=== PATIENT | female | born 1975 | race Caucasian/White ===

== ENCOUNTER 2016-11-20 12:26 | Emergency (ER) | payer OTHER ==
[~2016-11-20] VITALS: Ht 172.7 cm; Wt 66.5 kg
[2016-11-20 12:27] VITALS: BP 120/68; PULSE 86; RESP 16; TEMP 98.6; O2SAT 99
--- NOTE | 2016-11-20 12:34 | PD ---
Physical Exam Date Seen by Provider: Nov 20, 2016 Time Seen by Provider: 12:33 Narrative 41 yo female here for infected lower tooth for about 1 week. She is also but no issues with , here for the tooth. LMP in September 23. Pain is 4/10. Denies any other complaints. Vitals sign stable. Patient awaiting bed placement Data Data Last Documented VS Vital Signs Date Time Temp Pulse Resp B/P Pulse Ox O2 Delivery O2 Flow Rate FiO2 11/20/16 12:27 98.6 86 16 120/68 99 Room Air [facility] Medical Record Reviewed: Yes Supervised Visit with MARYLIN: No Jaydon Hua Nov 20, 2016 12:34
[2016-11-20] MEDS ORDERED: AMOX500C PO (13:48)
[2016-11-20] MEDS ORDERED: PERI0.126 SWISH-SPIT (13:48)
--- NOTE | 2016-11-20 13:49 | PD ---
HPI Chief Complaint: Oral / Dental Pain or Problem Time Seen by Provider: 13:45 Travel History International Travel<30 days: No Contact w/Intl Traveler<30days: No Traveled to known affect area: No History of Present Illness HPI 41-year-old female presents to the emergency Department with complaint of right lower dental pain 1 week. She is 8 weeks . Denies dental trauma. Says she has poor teeth. Denies facial erythema, edema. Denies fever, vomiting. No other medical complaints. No other modifying factors or associated signs and symptoms. PFSH Past Medical History ?: LMP: 09/23/16 Social History Tobacco Use: No Allergies-Medications Reported Meds & Prescriptions Reported Meds & Active Scripts Active Peridex Liq (Chlorhexidine Gluconate (Mouth) Liq) 0.12% Soln 15 Ml SWISH-SPIT BID 10 Days Amoxicillin 500 Mg Cap 500 Mg PO BID 10 Days Review of Systems Except as stated in HPI: all other systems reviewed are Neg Physical Exam Narrative GENERAL: Well-nourished, well-developed female patient, in no acute distress; afebrile, nontoxic-appearing SKIN: Warm and dry. HEAD: Atraumatic. Normocephalic. No facial edema, erythema, tenderness on palpation. No lymphadenopathy. EYES: Pupils equal and round. No scleral icterus. No injection or drainage. ENT: Mucosa pink and moist. Airway patent. MOUTH: Mucous membranes moist, no lesions, tongue and gums appear normal. Poor dentition throughout. Right lower tooth #30 with large dental cavity and decay ; existing tooth with tenderness on palpation; surrounding gingiva is edematous and without erythema, drainage; no obvious abscess noted. NECK: Trachea midline. No lymphadenopathy. CARDIOVASCULAR: Regular rate. RESPIRATORY: No accessory muscle use. GASTROINTESTINAL: Flat. MUSCULOSKELETAL: No obvious deformities. No clubbing. No cyanosis. No edema. NEUROLOGICAL: Awake and alert. Oriented 3. No obvious cranial nerve deficits. Motor grossly within normal limits. Normal speech. PSYCHIATRIC: Appropriate mood and affect; insight and judgment normal. Data Data Last Documented VS Vital Signs Date Time Temp Pulse Resp B/P Pulse Ox O2 Delivery O2 Flow Rate FiO2 11/20/16 12:27 98.6 86 16 120/68 99 Room Air MDM Medical Decision Making Medical Screen Exam Complete: Yes Emergency Medical Condition: Yes Medical Record Reviewed: Yes Differential Diagnosis Dentalgia, infected dental caries, dental abscess Narrative Course 41-year-old female with right lower tooth #30 dental pain. Poor dentition throughout. No facial erythema or edema. Patient is afebrile and nontoxic appearing. Denies fever, vomiting. Patient is a weeks . Emergency room recommendation dental sheet provided. Amoxicillin and Peridex mouth rinse prescribed for home. Instructed patient to follow up with dentist. Patient verbalizes understanding and agreement with treatment plan. Patient is medically cleared and stable for discharge. Discussed reasons to return to the emergency department. Instructed patient to follow up with primary care provider. Patient agrees with treatment plan. The patients vital signs are stable and the patient is stable for outpatient follow-up and treatment. Patient discharged home, stable and in no acute distress. Diagnosis Primary Impression: Dentalgia Referrals: Dentist Primary Care Physician Patient Instructions: Dental Abscess (ED), Dental Caries (ED), General Instructions, Toothache (ED) Departure Forms: Tests/Procedures, Work Release Enter return to work date: Nov 21, 2016 Additional Instructions: Complete full course of antibiotics Tylenol as directed and as needed to reduce pain and inflammation Use Peridex as directed for oral hygiene Warm compresses to the affected area Follow-up with dentist Follow-up with primary care provider Return to emergency department immediately with worsening of symptoms Med/Other Pt SpecificInfo: Prescription(s) given Scripts Chlorhexidine Gluconate (Mouth) Liq (Peridex Liq)0.12% Soln15 Ml SWISH-SPIT BID 10 Days Ref 0 Prov:Elise Haro 11/20/16 Amoxicillin 500 Mg Als305 Mg PO BID 10 Days Ref 0 Prov:Elise Haro 11/20/16 Disposition: 01 DISCHARGE HOME Condition: Stable Elsie Haro Nov 20, 2016 13:49
== END 2016-11-20 19:06 | disposition home or self-care (01) ==
LOC: NEPK 12:26
DX: K08.89 Other specified disorders of teeth and supporting structures (principal); Z33.1 Pregnant state, incidental
CPT/HCPCS: 99282

== ENCOUNTER 2017-02-04 13:25 | Emergency (ER) | payer MEDICAID, OTHER ==
[~2017-02-04 13:25] MED LIST: AMOX500C PO; PERI0.126 SWISH-SPIT
[2017-02-04 13:30] VITALS: BP 110/58; PULSE 71; RESP 18; TEMP 98.8; O2SAT 98
--- NOTE | 2017-02-04 13:57 | PD ---
Physical Exam Time Seen by Provider: 13:55 Narrative 41 y/o female here with left sided dental pain for 3-4 days. Vital signs reviewed. Seen at triage desk. Awaiting bed placement. Data Data Last Documented VS Vital Signs Date Time Temp Pulse Resp B/P Pulse Ox O2 Delivery O2 Flow Rate FiO2 02/04/17 13:30 98.8 71 18 110/58 98 Room Air MDM Medical Record Reviewed: Yes Supervised Visit with MARYLIN: Eric Reinoso Feb 04, 2017 13:57
--- NOTE | 2017-02-04 15:48 | PD ---
HPI Chief Complaint: Oral / Dental Pain or Problem Time Seen by Provider: 15:48 Travel History International Travel<30 days: No Contact w/Intl Traveler<30days: No Traveled to known affect area: No History of Present Illness HPI 41-year-old female who states she is 19 weeks presents versus permanent for evaluation of dental pain. Patient states that she has had bad teeth for a long time and she is unable to get into a dentist. Reports pain mostly on the left mandibular side. States she has been taking ibuprofen, despite knowing that she should not be . Patient denies a fever chills. Negative trauma. No difficulty chewing. No other symptoms to report. PFSH Past Medical History ?: Social History Tobacco Use: No Allergies-Medications (Allergen,Severity, Reaction): Coded Allergies: No Known Allergies (Unverified , 02/04/17) Reported Meds & Prescriptions Reported Meds & Active Scripts Active Peridex Liq (Chlorhexidine Gluconate (Mouth) Liq) 0.12% Soln 15 Ml SWISH-SPIT BID 14 Days Amoxicillin 500 Mg Tab 500 Mg PO BID 10 Days Peridex Liq (Chlorhexidine Gluconate (Mouth) Liq) 0.12% Soln 15 Ml SWISH-SPIT BID 10 Days Amoxicillin 500 Mg Cap 500 Mg PO BID 10 Days Review of Systems Except as stated in HPI: all other systems reviewed are Neg Physical Exam Narrative GENERAL: Well-nourished female patient distress SKIN: Focused skin assessment warm/dry. HEAD: Atraumatic. Normocephalic. EYES: Pupils equal and round. No scleral icterus. No injection or drainage. ENT: No nasal bleeding or discharge. Mucous membranes pink and moist. DENTAL: Poor dentition. Teeth along the mandible are decayed mostly to the gingiva. There is gingival erythema and edema. No appreciable abscess. No malocclusion. NECK: Trachea midline. No JVD. CARDIOVASCULAR: Regular rate and rhythm. No murmur appreciated. RESPIRATORY: No accessory muscle use. Clear to auscultation. Breath sounds equal bilaterally. Data Data Last Documented VS Vital Signs Date Time Temp Pulse Resp B/P Pulse Ox O2 Delivery O2 Flow Rate FiO2 02/04/17 16:03 02/04/17 13:30 98.8 71 18 98 Room Air MDM Medical Decision Making Medical Screen Exam Complete: Yes Emergency Medical Condition: Yes Medical Record Reviewed: Yes Differential Diagnosis Dental caries versus dental abscess versus gingivitis versus periodontal disease Narrative Course 21-year-old female presents for his primary for evaluation today. Patient does have generalized poor dentition. She has associated gingival erythema and edema. No appreciable abscess. I advised the patient not to take ibuprofen. Tylenol is safe for . She was started on oral antibiotics and provided Peridex oral rinse. She is encouraged to seek dental evaluation return immediately with any acute worsening symptoms. Diagnosis Primary Impression: Dentalgia Additional Impression: Gingivitis Referrals: Dentist Primary Care Physician Patient Instructions: Dental Caries (DC), General Instructions, Gingivitis (ED) Additional Instructions: Follow-up with a primary care provider Seek dental evaluation Return immediately with any acute worsening of symptoms Med/Other Pt SpecificInfo: Prescription(s) given Scripts Chlorhexidine Gluconate (Mouth) Liq (Peridex Liq)0.12% Soln15 Ml SWISH-SPIT BID 14 Days Ref 0 Prov:Re Jefferson 02/04/17 Amoxicillin 500 Mg Wno274 Mg PO BID 10 Days Ref 0 Prov:Re Jefferson 02/04/17 Disposition: 01 DISCHARGE HOME Condition: Stable Re Jefferson Feb 04, 2017 15:48
[2017-02-04] MEDS ORDERED: AMOX500T PO (15:53)
[2017-02-04] MEDS ORDERED: PERI0.126 SWISH-SPIT (15:53)
== END 2017-02-04 16:03 | disposition home or self-care (01) ==
LOC: NEPK 13:25
DX: O26.899 Other specified pregnancy related conditions, unspecified trimester (principal); K05.10 Chronic gingivitis, plaque induced; Z79.899 Other long term (current) drug therapy; Z3A.19 19 weeks gestation of pregnancy
CPT/HCPCS: 99284

== ENCOUNTER → 2017-03-17 | Outpatient (CLI) | payer MEDICAID ==
[~2017-03-17] MED LIST changes: +AMOX500T PO
== END ==
LOC: HPND 09:38
PROVIDERS: ATTEND Obstetrics & Gynecology
DX: O09.522 Supervision of elderly multigravida, second trimester (principal); Z3A.25 25 weeks gestation of pregnancy
CPT/HCPCS: 76811

== ENCOUNTER → 2017-04-26 | Outpatient (CLI) | payer MEDICAID | LOC: HPND 10:29 | PROVIDERS: ATTEND Obstetrics & Gynecology | DX: O98.512 Other viral diseases complicating pregnancy, second trimester (principal); O09.522 Supervision of elderly multigravida, second trimester | CPT/HCPCS: 76816 ==